=== PATIENT | female | born 1990 ===

== ENCOUNTER 2019-07-12 17:45 | Emergency (ER) | payer BC ==
[2019-07-12 19:34] LABS: Bilirubin Negative (Negative); Blood, Urine Negative (Negative); Clarity Clear (Clear); Glucose, Urine (Dipstick) Normal (Negative); Leukocyte Negative Leu/uL (Negative); Nitrite Negative (Negative); Protein, Urine (Dipstick) Negative (Neg-Trace); Urobilinogen Normal mg/dL (Less than 2)
[2019-07-12 19:37] LABS: Hemoglobin 14.3 g/dL (12.0-16.0); Mean Corpuscular HGB CONC 32.6 g/dL (32.0-36.0); Mean Corpuscular Hemoglobin 29.4 pg (27.0-31.0); Mean Corpuscular Volume 90.2 fL (78.0-98.0); Mean Platelet Volume 8.5 fL (7.4-10.4); Platelet Count 187 thou/uL (130-400); RBC Distribution Width 11.5 % (11.5-14.5); Red Blood Cell (RBC) Count 4.86 mill/uL (4.20-5.40); White Blood Cell (WBC) Count 3.2 thou/uL (4.8-10.8)
[2019-07-12 19:40] LABS: BHCG - Serum Negative (NEGATIVE); Pregs Control Background? CLEAR/WHITE (CLR/WHITE); Pregs Control Bar Appear? YES (CONTROL BAR)
[2019-07-12] MEDS ORDERED: Ketorolac Tromethamine 30 MG/ML VIAL ONE (20:05)
[2019-07-12 20:09] LABS: Band 8 % (5-11); Eosinophils 1 % (0-10); Lymphocytes 35 % (21-51); MDiff Complete? YES; Monocytes 10 % (0-10); Neutrophil 16 % (42-75); Platelet Morphology Comment Appears Adequate; RBC Morphology Normal; Reactive Lymphocytes 28 % (0-10)
[2019-07-12 20:18] LABS: ALT (SGPT) 11 U/L (8-55); AST (SGOT) 15 U/L (5-34); Albumin 4.1 g/dL (3.5-5.0); Alkaline Phosphatase 53 U/L (40-110); Anion Gap 10 mmol/L (10-20); BUN (Urea Nitrogen) 10 mg/dL (7.0-18.7); Bilirubin, Total 0.4 mg/dL (0.2-1.2); Calcium 8.4 mg/dL (7.8-10.44); Carbon Dioxide 29 mmol/L (22-29); Chloride 100 mmol/L (98-107); Globulin 2.8 g/dL (2.4-3.5); Glucose 81 mg/dL (70-105); Lipase 16 U/L (8-78); Potassium 3.8 mmol/L (3.5-5.1); Protein, Total 6.9 g/dL (6.0-8.3); Sodium 135 mmol/L (136-145)
[2019-07-12 20:47] LABS: Calc. Creatinine Clearance 0 mL/min (70-130); Estimated GFR-MDRD 77
--- NOTE | 2019-07-12 20:53 | ULT ---
RIGHT UPPER QUADRANT ULTRASOUND: 07/12/19 INDICATION: History of right upper quadrant pain with nausea, fever and history of influenza. COMPARISON: None. FINDINGS: There is a hyperechoic lesion seen within the anterior right hepatic lobe measuring 1.9 x 1.8 x 1.3 c m. Additional similar appearing smaller hyperechoic lesion seen within the anterior right hepatic lob e measuring 8 x 7 mm in size. The visualized gallbladder is normal appearing. The visualized pancreas is unremarkable appearing. No sonographic Liriano's sign is reported. Common bile duct measures 3.4 m m. Appropriate hepatopetal flow is seen in the main portal vein. Right kidney demonstrates no focal renal lesion or hydronephrosis. The right kidney measures 10.0 x 3.3 x 5.3 cm. IMPRESSION: 1. No acute sonographic abnormality of the right upper quadrant. 2. Small hyperechoic lesions within the right hepatic lobe suspicious for a small hemangioma or possibly small hepatic adenoma. Follow-up nonemergent MRI of the abdomen utilizing hemangioma protoco l may be helpful for improved characterization. POS: [place]
== END 2019-07-12 21:50 | disposition home or self-care (01) ==
LOC: ERS 17:45
DX: D18.09 Hemangioma of other sites (principal)
CPT/HCPCS: 76705; 80053; 81003; 83690; 84703; 85025; 96361; 96374; J1885